=== PATIENT | female | born 1940 | race African-American/Black ===

== ENCOUNTER 2023-09-12 14:20 | Emergency (ER) | payer MEDICARE, OTHER ==
[~2023-09-12] VITALS: Ht 167.6 cm; Wt 77.0 kg
[2023-09-12 14:28] VITALS: O2SAT 98
[2023-09-12] MEDS ORDERED: IOHEXOL-350 100 ML BOTTLE ONE ×2 (14:50→14:59)
[2023-09-12 15:41] LABS: BASOPHILS % 0.6 % (0.0-2.0); EOSINOPHILS % 1.4 % (0.0-5.0); HEMATOCRIT. 42.1 % (36.0-48.0); HEMOGLOBIN. 13.9 g/dL (12.0-16.0); LYMPHOCYTES % 33.4 % (20.0-50.0); MEAN CORPUSCULAR HEMOGLOBIN 31.1 pg (28.0-32.0); MEAN CORPUSCULAR VOLUME 94.2 fL (81.0-99.0); MEAN PLATELET VOLUME 7.2 fl (7.4-10.4); MONOCYTES % 8.3 % (2.0-8.0); NEUTROPHILS % 56.3 % (40.0-76.0); PLATELET 257 x1000/uL (130-400); RED BLOOD CELL COUNT 4.47 mill/uL (4.2-5.4); RED CELL DISTRIBUTION WIDTH 14.5 % (11.6-14.6); WHITE BLOOD COUNT 6.2 x1000/uL (4.5-11.0)
[2023-09-12 15:50] LABS: PROTHROMBIN TIME 10.3 sec (9.6-11.0)
[2023-09-12 15:57] LABS: ALANINE AMINOTRANSFERASE 12 IU/L (10-49); ALBUMIN 4.2 g/dL (3.2-4.8); ASPARTATE AMINOTRANSFERASE 14 IU/L (<34); BILIRUBIN TOTAL 0.5 mg/dL (0.1-1.0); CALCIUM 9.7 mg/dL (8.7-10.4); CARBON DIOXIDE 25 mEq/L (21-32); CHLORIDE 103 mEq/L (98-107); CREATINE KINASE 70 IU/L (34-145); GLUCOSE 109 mg/dL (70-105); POTASSIUM 3.9 mEq/L (3.5-5.1); PROTEIN TOTAL 7.7 g/dL (6.0-8.3); SODIUM 137 mEq/L (136-145); TROPONIN I HIGH SENSITIVITY 13 ng/L (3.0-34); UREA NITROGEN BLOOD 18 mg/dL (9-23)
[2023-09-12 16:02] LABS: ETHANOL BLOOD < 10 mg/dL (<10)
[2023-09-12] MEDS ORDERED: SODIUM CHLORIDE 0.9% 1,000 ML IV ONE (16:15)
[2023-09-12 17:47] VITALS: BP 158/88; PULSE 59; RESP 16; TEMP 98.5
== END 2023-09-12 18:35 | disposition short-term general hospital (02) ==
LOC: ER 14:20 → EDBEDREQ 14:44 → ER 18:35
DX: I63.9 Cerebral infarction, unspecified (principal); R41.82 Altered mental status, unspecified; I10 Essential (primary) hypertension; Z20.822 Contact with and (suspected) exposure to COVID-19
CPT/HCPCS: 80053; 80320; 82550; 82962; 83880; 85025; 85610; 85730; 86850; 86900; 86901; 84484; 36415; 71045; 70496; 70498; 70450; 93005; 99285; 87426; Q9967; J7030; G0480